=== PATIENT | female | born 1985 | race Asian ===

== ENCOUNTER → 2020-03-24 15:23 | Outpatient (ROUT) | payer OTHER, SELFPAY ==
[2020-03-24 15:27] LABS: Hematocrit 37.8 % (36-46); Hemoglobin 12.4 g/dL (12.0-16.0); Mean Corpuscular HGB Conc 32.9 % (30-36); Mean Corpuscular Hemoglobin 27.2 PG (26-34); Mean Corpuscular Volume 82.7 fL (80-100); Platelet Count 272 X10^3/uL (150-400); Red Blood Cell Count 4.57 X10^6/uL (4.0-5.2); Red Cell Distribution Width 13.9 % (11.6-14.8); White Blood Cell Count 11.8 X10^3/uL (4.5-11.0)
[2020-03-24 15:55] LABS: Hemoglobin A1C% w Est Avg Glu 5.6 % (4.0-6.0)
[2020-03-24 16:29] LABS: Glucose 81 mg/dL (70-100)
== END ==
PROVIDERS: Visit Provider Nurse Practitioner Obstetrics & Gynecology
DX: Z34.90 Encounter for supervision of normal pregnancy, unspecified, unspecified trimester (principal); Z13.1 Encounter for screening for diabetes mellitus; Z3A.28 28 weeks gestation of pregnancy
CPT/HCPCS: 82947; 83036; 85027

== ENCOUNTER 2020-05-29 12:57 | Outpatient (CLI) | payer OTHER, SELFPAY ==
--- NOTE | 2020-05-29 13:01 | DI.US.S_ITS ---
PROCEDURE: US OB LIMITED INDICATIONS: growth OUTSIDE/PRIOR DATING DATA: Last menstrual period (LMP): Unknown. LMP-based estimated date of delivery (ANITA): unknown. First dating scan (date and location): [facility], . Estimated date of delivery (ANITA) from first dating scan: 06/09/2020 TECHNIQUE: Real-time scanning was performed of the fetus, with image documentation and biometric measurements. A biophysical profile was also performed. COMPARISON: None. FINDINGS: General: A single live intrauterine gestation is present. Presentation: Vertex. Placenta: Placental position is anterior, without previa. Amniotic fluid index: 18.7 cm, normal range is 5-24 cm. heart rate: 135 beats per minute. Maternal cervical canal: 6 cm long. Normal lower limit is 2.5 cm. biometrics: Biparietal diameter: 8.9 cm equals 36 weeks 0 days Head circumference: 33.5 cm equals 38 weeks 2 days Abdominal circumference: 35.3 cm equals 39 weeks 2 days Femur length: 7.9 cm equals 40 weeks 1 day Estimated gestational age from initial scan: not applicable. Composite gestational age from present scan: 38 weeks 3 days Estimated weight and percentile: 3622 g, 90th percentile Measurement variability for biometric dating: +/- 7 days from 14 weeks to 15 weeks 6 days gestation, +/- 10 days from 16 weeks to 21 weeks 6 days gestation, +/- 2 weeks from 22 weeks to 27 weeks 6 days gestation, +/- 3 weeks for 28 weeks gestation or later. weight reference: 4500 g or EFW >90/95% is considered macrosomia or large for gestational age. EFW <10% is small for gestational age. EFW 5% or less is considered intra-uterine growth restriction. Other: Not applicable. Biophysical profile: Tone: 2 points Movement: 2 points Respiration: 2 points Largest Pocket: 2 points IMPRESSION: Normal biophysical profile, 8/8 points. The estimated gestational age based upon these images is 38 weeks 3 days. Estimated weight is 3622 g, 90th percentile. Please correlate with macrosomia. Dictated by: Filipe Sanabria M.D. on 05/29/2020 at 13:43 Approved by: Filipe Sanabria M.D. on 05/29/2020 at 13:46
[2020-05-29 13:32] LABS: Add Manual Diff / Slide Review NO; Basophils Absolute Auto 0 /uL (0-100); Basophils Percent Auto 0.5 % (0-2); Eosinophils Absolute Auto 0 /uL (0-450); Eosinophils Percent Auto 0.4 % (2-4); Hematocrit 41.3 % (36-46); Hemoglobin 13.6 g/dL (12.0-16.0); Lymphocytes Absolute Auto 1700 /uL (1100-4500); Lymphocytes Percent Auto 20.2 % (25-40); Mean Corpuscular Hemoglobin 27.1 PG (26-34); Monocytes Absolute Auto 400 /uL (0-900); Monocytes Percent Auto 5.2 % (3-14); Neutrophils Absolute Auto 6200 /uL (1500-7000); Neutrophils Percent Auto 73.7 % (50-75); Platelet Count 243 X10^3/uL (150-400); Red Blood Cell Count 5.04 X10^6/uL (4.0-5.2); Red Cell Distribution Width 15.3 % (11.6-14.8); White Blood Cell Count 8.4 X10^3/uL (4.5-11.0)
[2020-05-29 13:47] LABS: Aspartate Aminotransferase 19 IU/L (14-36); BUN Creatinine Ratio 17.9 (6-22); Blood Urea Nitrogen 5 mg/dL (7-17); Estimated Glomerular Filt Rate > 60.0 mL/min (>60); Uric Acid 3.5 mg/dL (2.5-6.2)
--- NOTE | 2020-05-29 14:28 | P.TNLD_ITS ---
Visit Information Visit Information Date of evaluation: 05/29/20 Primary OB Provider: Roula Moore On-call OB Provider: Roula Moore Reason for Evaluation: Yes other Comments/Additional reasons for admission: 34YO @ [id number] here for evaluation after elevated BP in clinic. Serial BPs, preeclampsia panel, and BPP/growth US (elevated FH in clinic) ordered. +FM and lots of mild contractions. No VB or LOF. Vital Signs Vital Signs: Serial BPs: 120/77, 119/74, 114/76, 119/58, 111/57, 109/55. 117/58 HR 85bpm, T 36.0C Temporal PFSH Medical History (Updated 05/29/20 @ 14:43 by Roula Moore CNM) Anxiety Romero's thyroiditis Surgical History (Updated 05/29/20 @ 14:40 by Roula Moore CNM) History of cholecystectomy Family History (Updated 05/29/20 @ 14:40 by Roula Moore CNM) Father Hypertension Social History (Updated 05/29/20 @ 14:41 by Roula Moore CNM) marital status: number of children: 1 household members: spouse and children lives independently: Yes caregiver/support person: No housing: house education level: college Review of Systems Review of Systems ROS: Yes All systems reviewed with the patient and are negative except as otherwise documented Exam Vital Signs (past 8 hours): see above Objective Labs Result Diagrams: 05/29/20 13:20 05/29/20 13:20 Labs: Laboratory Results - last 24 hr 05/29/20 05/29/20 13:20 13:20 WBC 8.4 RBC 5.04 Hgb 13.6 Hct 41.3 MCV 82.0 MCH 27.1 MCHC 33.0 RDW 15.3 H Plt Count 243 Neut % (Auto) 73.7 Lymph % (Auto) 20.2 L Catron % (Auto) 5.2 Eos % (Auto) 0.4 L Baso % (Auto) 0.5 Neut # (Auto) 6200 Lymph # (Auto) 1700 Catron # (Auto) 400 Eos # (Auto) 0 Baso # (Auto) 0 BUN 5 L Creatinine 0.28 L Estimated GFR > 60.0 BUN/Creatinine Ratio 17.9 Uric Acid 3.5 AST 19 Evaluation Evaluation Baseline heart rate: 130 Variability: Moderate (11-25) monitor accelerations: Present monitor decelerations: Absent Uterine Contraction Intensity: Mild Category of Tracing: Reactive Status: Category l Laboratory results: Laboratory Tests 05/29/20 05/29/20 13:20 13:20 WBC 8.4 RBC 5.04 Hgb 13.6 Hct 41.3 MCV 82.0 MCH 27.1 MCHC 33.0 RDW 15.3 H Plt Count 243 Neut % (Auto) 73.7 Lymph % (Auto) 20.2 L Catron % (Auto) 5.2 Eos % (Auto) 0.4 L Baso % (Auto) 0.5 Neut # (Auto) 6200 Lymph # (Auto) 1700 Catron # (Auto) 400 Eos # (Auto) 0 Baso # (Auto) 0 BUN 5 L Creatinine 0.28 L Estimated GFR > 60.0 BUN/Creatinine Ratio 17.9 Uric Acid 3.5 AST 19 Comments: BPP: 11/19 Diagnosis, Plan/Disposition Final Diagnosis (1) Elevated blood pressure reading in office with white coat syndrome, without diagnosis of hypertension: Status: Acute (2) 37 weeks gestation of : Status: Acute Plan/Disposition Plan: Given normal serial BPs and labs in triage w/ reactive NST and BPP 11/19, patient discharged to home w/ routine weekly follow-up appointment scheduled for 06/05/20. Growth US was completed, but not reported yet. Will discuss rep ort w/ patient in clinic next week. Routine warning sx reviewed. OB Disposition: home
[2020-05-29 16:06] LABS: Creatinine Urine Random 60.7 mg/dL; Protein (Total) Urine Random 15 mg/dL (0-12); Protein Creatinine Ratio Urine 0.24 GRAM/24H
== END 2020-05-29 14:40 | disposition home or self-care (01) ==
LOC: LABOR 14:45 → OB 05-30 07:35
PROVIDERS: Referring Provider Nurse Practitioner Obstetrics & Gynecology; Visit Provider Nurse Practitioner Obstetrics & Gynecology
DX: O26.893 Other specified pregnancy related conditions, third trimester (principal); R03.0 Elevated blood-pressure reading, without diagnosis of hypertension; Z3A.37 37 weeks gestation of pregnancy; Z36.85 Encounter for antenatal screening for Streptococcus B
CPT/HCPCS: 36415; 59025; 76815; 76819; 82570; 84156; 84450; 84550; 85025; 87081; 87147; G0378; G0379

== ENCOUNTER → 2020-05-29 14:55 | Outpatient (ROUT) | payer OTHER, SELFPAY | PROVIDERS: Visit Provider Nurse Practitioner Obstetrics & Gynecology | DX: Z34.90 Encounter for supervision of normal pregnancy, unspecified, unspecified trimester (principal); Z36.85 Encounter for antenatal screening for Streptococcus B; Z3A.36 36 weeks gestation of pregnancy | CPT/HCPCS: 87081 ==

== ENCOUNTER 2020-06-14 10:05 | Inpatient (IN) | payer OTHER, SELFPAY ==
--- NOTE | 2020-06-14 10:47 | P.HPOB_ITS ---
OB HPI Date/Time Date of admission: 06/14/20 Date Patient Seen: 06/14/20 Time Patient Seen: 10:15 History of Present Condition Chief complaint: maternity : 2 Para: 1 Estimated Date of Delivery: 06/16/20 Estimated Gestational Age (weeks): 39.5 Narrative: Inna Viramontes is a 34 year old female History of Present care: good care, initiated at week # (11), number of visits (9) and pounds weight gain (40) Dating criteria: LMP confirmed by 1st trimester US Ultrasounds: normal mid trimester US Obstetrical complications: none Medical complications: none Preadmission Labs Blood type: O (+) positive -: Antibody screen: negative, GBS status: positive, HBsAG: negative and RPR/VDLR: negative -: Rubella: immune HCT: 37.8 HCAB: negative Narrative: Patient declined gtt. Had normal random glucose-81, QiuP1b-0.6 and normal 2 week QID BGs in 3rd trimester. Prior (ies) History: 06/25/18- NSVB @ 39wks, IOL for GHTN, GDMA1 Evaluation Evaluation Baseline heart rate: 130 Variability: Moderate (11-25) monitor accelerations: Absent monitor decelerations: Variable Contraction Frequency (minutes): 2 Uterine Contraction Intensity: Strong/Firm Status: Category ll Cervical dilation (cm): 10 Cervical effacement (%): 100 station: +3 Comments: <24 minutes of FHR monitoring prior to . Pt gave within 30 minutes of arrival. visible upon my entry into the room. PFSH Medical History Anxiety Romero's thyroiditis Surgical History History of cholecystectomy Family History Father Hypertension Social History marital status: number of children: 1 household members: spouse and children lives independently: Yes caregiver/support person: No housing: house education level: college Review of Systems Review of Systems ROS: Yes All systems reviewed with the patient and are negative except as otherwise documented Exam Presentation: vertex Amniotic Fluid: meconium Other: Bulging bag intact w/ thin meconium visible and patient pushing. NSVB of a vigorous baby girl in direct OA position w/ a single loose nuchal cord, en caul. [place] was somersaulted and bag was broken w/ of her legs, then loose nuchal cord was reduced. Terminal meconium was noted. was placed on maternal abdomen for drying, stimulation and skin to skin. After cessation of pulsation, the cord was double clamped by CNM and cut by FOB. Pitocin 10 units IM was given for AMTSL. Single maternal push led to spontaneous, Schultze delivery of an apparently intact placenta, membranes and 3VC. Hospital cord blood sample was collected from the cord after delivery of the placenta. Fundus was immediately firm and bleeding scant. Inspection revealed a small perineal split w/ good approximation and hemostasis and no indication for repair. QBL 350mL. Both mother and baby stable and skin to skin as I left the room. Objective Labs Labs: SARS-CoV-2 NEGATIVE, resulted after the Assessment and Plan Assessment and Plan Assessment and Plan narrative: A: Precipitous vaginal w/ no time for GBS prophylaxis P: Admit, routine orders. Anticipate discharge in 24 hours.
[2020-06-14 11:07] LABS: COVID19 -Nasal RAPID Negative (Negative)
--- NOTE | 2020-06-14 11:23 | P.PCNOB_ITS ---
Labor & Delivery Delivery date: 06/14/20 Intrapartal Events: Precipitous Labor < 3 hours Induction method: none Delivery monitor: external FHT Route of delivery: Episiotomy description: None L&D Laceration Description: Perineal - 1st Degree (hemostatic and well approximated w/ no indication for repair) Estimated blood loss (mL): 350 Anesthesia Type: None Narrative: Bulging bag intact w/ thin meconium visible and patient pushing. NSVB of a vigorous baby girl in direct OA position w/ a single loose nuchal cord, en caul. was somersaulted and bag was broken w/ of her legs, then loose nuchal cord was reduced. Terminal meconium was noted. [place] was placed on maternal abdomen for drying, stimulation and skin to skin. After cessation of pulsation, the cord was double clamped by CNM and cut by FOB. Pitocin 10 units IM was given for AMTSL. Single maternal push led to spontaneous, Schultze delivery of an apparently intact placenta, membranes and 3VC. Hospital cord blood sample was collected from the cord after delivery of the placenta. Fundus was immediately firm and bleeding scant. Inspection revealed a small perineal split w/ good approximation and hemostasis and no indication for repair. QBL 350mL. Both mother and baby stable and skin to skin as I left the room. Baby 1: gender: Female Presentation: vertex Placenta delivery description: Spontaneous Cord Vessel Description: 3 Vessels score (1 min): 8 score (5 min): 9 Plan for aftercare: Routine care
[2020-06-14 19:48] VITALS: BP 114/76
--- NOTE | 2020-06-15 09:19 | PM.OBDS.1 ---
Discharge Providers Provider Date of admission: 06/14/20 10:05 Discharge Date: 06/15/20 Consults: 06/15/20 10:46 Consult to [employer] Routine Comment: Discharge provider: Roula Moore CNM Summary Discharge Diagnosis (1) First degree perineal laceration during delivery: Status: Acute Problem Details: Pt sitting up in bed, feeling well. Has showered and dressed in her own clothes. Voiding and ambulating independently. Denies pain, declined PO medications for pain this morning. Lochia is light, no clots. Primary concern is poor latch with independent overnight. She has continued to breast feed her 2YO so milk is already in, but may have a tongue tie. has been consulted and will evaluate the today. Time Spent with Patient Time attestation: Total time spent providing and/or coordinating discharge services: Objective Labs Labs: Laboratory Results - last 24 hr 06/14/20 10:00 SARS-CoV-2 (PCR) Negative Exam Vital Signs (past 8 hours): BP 116/81, HR 90bpm, RR 16/min, T98.6F Temporal Other: Fundus firm @ U, lochia scant, no clots. Unable to visualize small perineal laceration without more invasive exam d/t body habitus. Laceration is well approximated without edema. Discharge Plan Discharge Plan Patient Disposition: Home Discharge orders & Medications Prescriptions: Continued No Known Home Medications RF: 0 Follow up/Referrals: Roula Moore CNM [[facility]] - (Follow-up in 2 weeks by Telehealth 06/28/20 @ 0930 Follow-up in 6 weeks in office 07/26/20 @ 0830) Diet/Activity/Treatments Diet: Diet as Tolerated Activity: pelvic rest for 6 weeks Skin/Wound/Dressing Care Report to your healthcare provider any signs of infection, such as:: chills, fever, increased pain, unusual drainage and unusual redness Visit Report/Discharge Packet Instructions: DI for Depression
[2020-06-15 10:46] VITALS: BP 116/81; PULSE 90; RESP 16; TEMP 37
== END 2020-06-15 12:55 | disposition home or self-care (01) | DRG 807 ==
PROVIDERS: Admitting Provider Nurse Practitioner Obstetrics & Gynecology; Referring Provider Nurse Practitioner Obstetrics & Gynecology; Visit Provider Nurse Practitioner Obstetrics & Gynecology
DX: O62.3 Precipitate labor (principal); Z37.0 Single live birth; Z3A.39 39 weeks gestation of pregnancy; O99.824 Streptococcus B carrier state complicating childbirth; P03.82 Meconium passage during delivery; O69.81X0 Labor and delivery complicated by cord around neck, without compression, not applicable or unspecified; O70.0 First degree perineal laceration during delivery; Z20.822 Contact with and (suspected) exposure to COVID-19
CPT/HCPCS: 59050; 87635; C9803; G0379